=== PATIENT | female | born 1935 | race Caucasian/White ===

== ENCOUNTER 2019-03-01 16:14 | Emergency (ER) | payer OTHER ==
[~2019-03-01] VITALS: Ht 157.5 cm; Wt 93.6 kg
[2019-03-01 16:24] VITALS: Ht 157.5 cm; Wt 93.6 kg
--- NOTE | 2019-03-01 18:15 | ERD ---
ER Documentation Chief Complaint Chief Complaint RT KNEE AND LEG PAIN, RT ANKLE SWELLING, UNABLE TO WALK HPI 83-year-old female, with history of chronic knee pain and morbid obesity, presen ts to the emergency department, complaining of 3 days with worsening of right knee pain after walking for a prolonged period of time. Which she is not used to. The pain is dull, 6/10. The patient denies distal weakness, numbness or tingling. ROS All systems reviewed and are negative except as per history of present illness. Medications Home Meds Active Scripts Ondansetron Hcl* (Zofran*) 4 Mg Tablet, 4 MG PO Q8H PRN for NAUSEA AND/OR VOMITING, #15 TAB Prov:LIZABETH TONY MD 03/01/19 Front Wheel Walker* (Front Wheel Walker*) 1 Each Dme, EACH MC DIRECTED, #1 0 Refills Prov:LIZABETH TONY MD 03/01/19 Hydrocodone/Acetaminophen (Jennings 5-325 Tablet) 1 Each Tablet, 1 TAB PO QHS PRN for PAIN, #7 TAB Prov:LIZABETH TONY MD 03/01/19 Allergies Allergies: Coded Allergies: No Known Allergy (Unverified , 03/01/19) PMhx/Soc Medical and Surgical Hx: pt denies Medical Hx, pt denies Surgical Hx FmHx Family History: diabetes; No coronary disease Physical Exam Vitals Vital Signs Date Temp Pulse Resp B/P (MAP) Pulse Ox O2 O2 Flow FiO2 Time Delivery Rate 03/01/19 97.9 74 18 183/89 95 Room Air 19:51 (120) 03/01/19 99.6 74 17 196/79 97 16:24 (118) Physical Exam Const: No acute distress, morbid obesity Head: Atraumatic Eyes: Normal Conjunctiva ENT: Normal External Ears, Nose and Mouth. Neck: Full range of motion. No meningismus. Resp: Clear to auscultation bilaterally Cardio: Regular rate and rhythm, no murmurs Abd: Soft, non tender, non distended. Normal bowel sounds Skin: No petechiae or rashes Back: No midline or flank tenderness Ext: Right knee with normal inspection, decreased range of motion for flexion due to pain. Distal neurovascular exam intact. Neur: Awake and alert Psych: Normal Mood and Affect Results 24 hrs Current Medications Medications Dose Sig/Karen Start Time Status Last (Trade) Ordered Route PRN Stop Time Admin Dose Reason Admin Ketorolac 15 mg ONCE STAT 03/01/19 DC 03/01/19 Tromethamine IM 18:40 18:54 (Toradol) 03/01/19 18:50 1 tab ONCE ONCE 03/01/19 DC 03/01/19 Acetaminophen PO 19:00 18:54 / 03/01/19 19:01 Hydrocodone Bitart (Jennings (5/325)) Ondansetron 8 mg ONCE STAT 03/01/19 DC 03/01/19 HCl (Zofran ODT 19:55 19:58 Odt) 03/01/19 19:56 Ondansetron 4 mg STK-MED 03/01/19 DC HCl (Zofran ONCE ODT 19:56 Odt) 03/01/19 19:57 Procedures/MDM Acute right knee pain: no red flags. Differential diagnosis include but not limited to: Knee contusion, meniscus injury, tendon/ligament injury, arthritis; low suspicion for fracture, dislocation, septic arthritis. Neurovascular exam grossly intact. no clinical findings suggestive of acute infectious process, no acute deformity, no edema, no rashes. Pertinent Data: X-rays: No fracture or dislocation Physical examination and clinical presentation consistent most likely with osteoarthritis of the right knee. During the ED course the patient received treatment with Jennings p.o. presenting overall improvement of the symptoms. Results and clinical impression discussed with the patient who agrees with management. The patient is stable to be treated outpatient and will be discharged home with recommendations for ice, rest,NSAIDs 3 times daily for 5 days and close monitoring. The patient was instructed to follow up with the primary care provider in the next 48h. If symptoms persist, worsen or new symptoms develop, then patient should return to the ED immediately. Instructions explained and given to patient with acknowledgment and demonstrated understanding. Disclaimer: Inadvertent spelling and grammatical errors are likely due to EHR/dictation software use and do not reflect on the overall quality of patient care. Also, please note that the electronic time recorded on this note does not necessarily reflect the actual time of the patient encounter. Departure Diagnosis: Primary Impression: Right knee pain Additional Impression: Osteoarthritis of right knee Condition: Stable Additional Instructions: Muchas anish por escoger [facility] para costa servicio. Esperamos que en costa visita a la meng de emergencia costa problema medico haya sido solucionado y que se sienta mucho mejor. Para estar seguros que costa mejoria sigue en proceso, le pedimos el favor de hacer sayda heidy de seguimiento medico con costa doctor primario en los proximos 2-4 betancur. Lleve con usted estos documentos y las medicinas recetadas. Si esperanza sintomas empeoran, NO SE ESPERE, por favor regrese a meng de emergencia INMEDIATAMENTE. En kiara que usted no tenga un mdico de atencin primaria: Llame al mdico o clnica comunitaria de referencia que aparece abajo balbina las horas de consultorio para hacer sayda heidy para que le vean. CLINICAS: [facility] [phone] [facility] [phone] [facility] [phone] [facility] [phone] [place] [id number] [phone] [facility]. [phone] LIZABETH GUTIERREZ MD Mar 01, 2019 18:15
[2019-03-01] MEDS ORDERED: KETOROLAC 15 MG INJ IM STA (18:40)
[2019-03-01] MEDS ORDERED: HYDROCODONE/APAP (5/325) TAB PO ONE (19:00)
[2019-03-01] MEDS ORDERED: HYDR-4011 PO (19:30)
[2019-03-01] MEDS ORDERED: WALK1EAC23 MC (19:30)
[2019-03-01 19:51] VITALS: BP 183/89; PULSE 74; RESP 18
[2019-03-01] MEDS ORDERED: ONDA4TAB8 PO (19:55)
[2019-03-01] MEDS ORDERED: ONDANSETRON (ODT) 4 MG TAB ODT STA (19:55)
[2019-03-01] MEDS ORDERED: ONDANSETRON (ODT) 4 MG TAB ODT ONE (19:56)
== END 2019-03-01 19:52 | disposition home or self-care (01) ==
LOC: FTE 16:14
DX: M25.561 Pain in right knee (principal); M17.9 Osteoarthritis of knee, unspecified
CPT/HCPCS: 73562; 96372; 99284; J1885